=== PATIENT | male | born 1975 | race Asian ===

== ENCOUNTER 2022-06-07 11:45 | Emergency (ER) | payer SELFPAY ==
[~2022-06-07] VITALS: Ht 170.2 cm; Wt 86.2 kg
--- NOTE | 2022-06-07 11:56 | NUR ---
C/O COUGHING UP BLOOD AND HEADACHE SINCE THIS MORNING. DENIES SOB, OR CP. NO OTHER COMPLAINTS. PT AMBULATED TO BED WITH STEADY AGAIT. VSS. AAOX4. BREATHING EVEN AND UNLABORED. SAFTEY PRECAUTIONS IN PLACE. AWAITING MD ORDERS.
--- NOTE | 2022-06-07 12:02 | NUR ---
DR. WALL AT BEDSIDE FOR EVAL
--- NOTE | 2022-06-07 12:15 | NUR ---
ESTABLISHED IV ACCESS 18G RIGHT AC. BLOOD DRAWN AND SENT TO LAB
[2022-06-07] MEDS ORDERED: IV NS 0.9% 250 ML IV ONE (12:46)
[2022-06-07] MEDS ORDERED: IOHEXOL-300 100 ML VIAL IV ONE (12:46)
[2022-06-07 13:07] LABS: BASOPHILS # (AUTO) 0.1 K/uL (0.0-0.2); BASOPHILS % (AUTO) 0.9 % (0.0-2.0); EOSINOPHILS % (AUTO) 3.7 % (0.0-6.0); HEMATOCRIT 45 % (39-51); HEMOGLOBIN 14.9 g/dL (13.5-17.5); LYMPHOCYTES # (AUTO) 2.2 K/uL (0.8-4.8); LYMPHOCYTES % (AUTO) 24.5 % (20.0-44.0); MEAN CORPUSCULAR HGB CONC 33 g/dl (31.0-36.0); MEAN CORPUSCULAR VOLUME 95 fL (80-96); MONOCYTES # (AUTO) 0.7 K/uL (0.1-1.30); MONOCYTES % (AUTO) 7.8 % (2.0-12.0); NEUTROPHILS # (AUTO) 5.7 K/uL (1.8-8.9); NEUTROPHILS % (AUTO) 63.1 % (43.0-81.0); PLATELET COUNT (AUTO) 197 K/uL (150-450); RED BLOOD CELL COUNT(AUTO) 4.76 MIL/uL (4.5-6.0); WHITE BLOOD COUNT (AUTO) 9.1 K/uL (4.3-11.0)
[2022-06-07 13:14] LABS: CALCIUM, SERUM 8.9 mg/dL (8.5-10.1); CREATININE 1.1 mg/dL (0.6-1.3); POTASSIUM 3.8 mmol/L (3.5-5.1)
[2022-06-07 13:20] LABS: BILIRUBIN,DIRECT 0.2 mg/dL (0.0-0.2); BILIRUBIN,TOTAL 0.6 mg/dL (0.2-1.0); TOTAL PROTEIN, SERUM 7.9 g/dL (6.4-8.2)
[2022-06-07] MEDS ORDERED: LISI1TAB32 PO (13:25)
[2022-06-07] MEDS ORDERED: AZIT250T13 PO (13:25)
--- NOTE | 2022-06-07 13:43 | NUR ---
Patient discharged to home in stable condition. Written and verbal after care instructions given. Patient verbalizes understanding of instruction.IV removed. Catheter intact and site benign. Pressure and 4x4 applied to site. No bleeding noted.
[2022-06-07 13:44] VITALS: BP 208/147
== END 2022-06-07 13:44 | disposition home or self-care (01) ==
LOC: ER 11:53
DX: R04.2 Hemoptysis (principal); I10 Essential (primary) hypertension; F17.200 Nicotine dependence, unspecified, uncomplicated; Z60.2 Problems related to living alone; Z79.899 Other long term (current) drug therapy
CPT/HCPCS: 36415; 71260-TC; 80048-TC; 80076-TC; 85025-TC; 85730-TC; 86850-TC; J7050; Q9967